=== PATIENT | female | born 1970 | race Caucasian/White ===

== ENCOUNTER 2017-09-20 07:23 | Day surgery (SDC) | payer OTHER ==
[~2017-09-20] VITALS: Ht 172.7 cm; Wt 90.0 kg
[2017-09-20] MEDS ORDERED: LACTATED RINGERS 1,000 ML IV SCH (07:57)
[2017-09-20] MEDS ORDERED: LIDOCAINE-MPF 1%, 2ML INFIL ONE (08:00)
[2017-09-20] MEDS ORDERED: PROG100C2 PO (08:08)
[2017-09-20] MEDS ORDERED: FLUO10CA7 PO (08:08)
[2017-09-20] MEDS ORDERED: GLIP5TAB10 PO (08:08)
[2017-09-20] MEDS ORDERED: SAXA2.5T PO (08:08)
[2017-09-20] MEDS ORDERED: ATOR20TA9 PO (08:08)
[2017-09-20] MEDS ORDERED: CARV12.52 PO (08:08)
[2017-09-20] MEDS ORDERED: SPIR50TA2 PO (08:08)
[2017-09-20] MEDS ORDERED: AMLO5TAB2 PO (08:08)
[2017-09-20] MEDS ORDERED: METF1000 PO (08:08)
[2017-09-20] MEDS ORDERED: OMEP-110 PO (08:08)
[2017-09-20] MEDS ORDERED: LORA10TA62 PO (08:08)
[2017-09-20 08:49] LABS: HCG UR SG 1.008 (1.003-1.030)
[2017-09-20] MEDS ORDERED: PLEASE ENTER HEIGHT AND WEIGHT MC SCH (09:00)
[2017-09-20] MEDS ORDERED: LIDOCAINE-MPF 1%, 5ML ONE (10:30)
[2017-09-20] MEDS ORDERED: PROPOFOL 10 MG/ML, 20ML ONE (10:30)
[2017-09-20] MEDS ORDERED: FENTANYL PF 100 MCG/2ML IV PRN (11:00)
[2017-09-20] MEDS ORDERED: LABETALOL 5MG/ML, 20ML IV PRN (11:00)
[2017-09-20] MEDS ORDERED: hydrALAzine 20 MG/ML, 1ML IV PRN (11:00)
[2017-09-20] MEDS ORDERED: ACETAMINOPHEN 325 MG TABLET PO PRN (11:00)
[2017-09-20] MEDS ORDERED: OXYcodone 5 MG/5 ML ORAL.SOL UDC PO PRN (11:00)
[2017-09-20] MEDS ORDERED: HYDROcodone/APAP 7.5-325MG/15ML UDC PO PRN (11:00)
[2017-09-20] MEDS ORDERED: ONDANSETRON 2MG/ML, 2ML IVPush PRN (11:00)
== END 2017-09-20 12:20 ==
LOC: OUT 07:23
PROVIDERS: ATTEND Internal Medicine
DX: K22.9 Disease of esophagus, unspecified (principal); E11.9 Type 2 diabetes mellitus without complications; I10 Essential (primary) hypertension; K21.9 Gastro-esophageal reflux disease without esophagitis
CPT/HCPCS: 43239; 43259; 81025; 82962; 88305; J2704; J7120